=== PATIENT | male | born 1965 | race Caucasian/White ===

== ENCOUNTER 2020-04-08 10:42 | Emergency (ER) | payer BC, SELFPAY ==
[2020-04-08 10:49] VITALS: BP 117/80; RESP 18; TEMP 36.6; BMI 25.0
--- NOTE | 2020-04-08 10:57 | ED_ITS ---
HPI - Extremity Problem General: Chief complaint: Extremity Injury, Upper Stated complaint: COW RAN HIM OVER Time Seen by Provider: 04/08/20 10:51 History of Present Illness: HPI Narrative: Patient is a 54-year-old male comes to the ED with left wrist injury and laceration on left hand. Patient says injury occurred just prior to arrival. 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 He is unsure how his left wrist got injured. He has some swelling and pain but range of motion is all normal. He also has a laceration on the palm of left hand. Patient says he rinsed it out and poured hydrogen peroxide on laceration after injury. Patient's last tetanus shot was within a year. Associated symptoms: Deny chest pain, fever(s) or rash Review of Systems Const: Denies: fever(s), chills or fatigue Eyes: Denies: change in vision or eye discomfort ENMT: Denies: throat pain, odynophagia, nasal discharge or nasal congestion Card: Denies: chest pain, palpitations, edema, swelling of feet/ankles, dyspnea on exertion or orthopnea Resp: Denies: dyspnea, productive cough or non-productive cough GI: Denies: abdominal pain, nausea, vomiting, diarrhea, constipation or hemato chezia : Denies: flank pain, difficulty urinating, dysuria or hematuria Musc: Reports: extremity pain (left wrist) and extremity swelling (left wrist); Denies: neck pain or back pain Skin/Breast: Reports: new lesions (laceration on palmar side of hand); Denies: rash Neuro: Denies: headache(s), numbness in extremities or weakness in extremities PFS ED PFSH: Social History Smoking and tobacco status: never smoked Physical Exam Const: COMMON NORMALS: no acute distress, patient oriented x3, healthy appearing and alert GENERAL APPEARANCE: cooperative and comfortable HENMT: COMMON NORMALS: normocephalic HEAD & SCALP: normocephalic MOUTH: Normal oral and palatal mucosa present THROAT: posterior oropharynx normal and uvula midline Neck/C-Spine: COMMON NORMALS: supple GENERAL: Yes normal visual inspection Resp: COMMON NORMALS: normal respiratory effort, No retractions, No use of accessory muscles and clear to auscultation bilaterally AUSCULTATION: clear to auscultation bilaterally Cardio: COMMON NORMALS: regular rate, regular rhythm, S1 normal heart sound present, S2 normal heart sound present, No gallops present (Cardio), No clicks present (Cardio), No murmurs present (Cardio) and Peripheral pulses 2+ throughout RATE: regular rate RHYTHM: regular rhythm HEART SOUNDS: S1 normal heart sound present and S2 normal heart sound present PERIPHERAL PULSES: Peripheral pulses 2+ throughout GI: COMMON NORMALS: Normal to inspection, nondistended, normoactive bowel jeanne nds present, Soft to palpation, non-tender and no masses PALPATION: Yes Soft to palpation : COMMON NORMALS: Yes no CVA tenderness BLADDER/KIDNEY EXAM: Yes no CVA tenderness Back/Pelvis: COMMON NORMALS: no CVA tenderness Extremity: COMMON NORMALS: capillary refill normal LEFT UPPER EXTREMITY: Yes wrist Left wrist: Yes inspection (Mild swelling, no visible deformity.), Yes palpation (Mild tenderness: Palpation around on lateral ulnar and radial side of wrist.), Yes ROM (Full) and Yes neurovascular exam (Intact) and Yes hand & digits Left hand and digits: Yes inspection (1 cm superficial laceration on palm side of left hand.) Neuro: COMMON NORMALS: patient oriented x3, CN's II-XII intact bilaterally, moves all extremities, no focal motor deficits and no sensory deficits noted SENSORIUM/ORIENTATION: Yes alert SENSORY EXAM: Yes extremities (intact) MOTOR EXAM: 5/5 motor strength present throughout Skin: TRAUMA: laceration (1 cm superficial laceration on palmar aspect of left hand.) linear, actively bleeding (scant), superficial, motor nerve function intact and sensation intact; no pulsatile bleeding Procedures Laceration Laceration 1: Site: hand Side (If applicable): left Size (cm): 1 Description: linear and clean Depth: simple, single layer Pre-repair: irrigated extensively (Irrigated with normal saline and cleaned with CHG swab) Skin layer closed with: other (Dermabond) Technique: other (Dermabond) Course Vital Signs: Vital signs: Vital Signs Temperature 97.8 F 04/08/20 10:49 Pulse Rate 68 04/08/20 13:10 Respiratory Rate 18 04/08/20 13:10 Blood Pressure 131/89 04/08/20 13:10 Pulse Oximetry 98 04/08/20 13:10 MDM - Extremity (Nontraumatic) MDM Narrative: Medical decision making narrative: Patient is a 54-year-old male who comes to the ED with left wrist pain and small 1 cm superficial laceration on palm of left hand. X-ray was performed and showed no acute fractures. Laceration was cleaned with normal saline and CHG. Laceration was closed with Dermabond. Patient was given a dose of cephalexin while here in the ED. Patient diagnosed with left wrist sprain and strain. A bandage was then applied on patient's laceration by the nurse and he was also given a left Velcro wrist splint. Patient told to follow-up with PCP in 7 to 10 days for reevaluation. Take ibuprofen for pain and inflammation. Take full course of antibiotic as prescribed. Change bandage and clean wound and re-bandage daily. Patient understood and agreed with plan. Imaging Data^: Xray Ortho: Attestation: I personally reviewed and interpreted this imaging study as follows: Radiologist's impression: [address] [address] XRay Report Signed Patient: Israel Olivera Unit #: [id number] : 1965 Age/Sex: 54 / M ADM Date: 04/08/20 Loc: ER Room/Bed: Attending Dr: Ordering Provider/Ordering MD: Marvin Waller Date of Service: 04/08/20 Procedure(s): XR wrist LT min 3V* 31495 Accession Number(s): [id number] Report Number: [id number] WS: [id number] XR wrist LT min 3V* [id number] REASON FOR EXAM: injury with wrist pain FINDINGS: Soft tissue swelling surrounding the wrist. No fractures of the ulna or radius are seen. The carpal bones appear to be normal. XR/XR wrist LT min 3V* [id number] IMPRESSION: No fractures identified. Dictated By: Danial Cervantes DO Signed By: Dnaial Cervantes DO Signed Date/Time: 04/08/20 1136 DD/ 1135 Discharge Plan Discharge Patient Disposition: Home, Self-Care Clinical Impression: Sprain and strain of wrist, Laceration Condition: Stable Prescriptions: New cephalexin 500 mg capsule 500 mg PO TID 4 Days Qty: 12 RF: 0 No Action No Known Home Medications RF: 0 Discharge Orders: Discharge Order (Routine); Ordered 04/08/20 Ordered By: Marvin Waller Referrals: Bryan Mitchell MD [Primary Care Provider] - Discharge Diet: Regular Discharge Activity: Resume usual activity Patient Instructions: Laceration (ED), Skin Adhesive Care (ED), Wrist Sprain (ED) Activity Restrictions/Additional Instructions: Call your PCP and schedule a follow-up appointment in 7 to 10 days for reevaluation. Keep laceration site bandaged and dry for the next 24 to 48 hours. Then you can remove bandage daily clean around the wound and re-bandage. You can also apply triple antibiotic ointment over laceration to help prevent infection. Take full course of antibiotics as prescribed. Wear wrist splint to help with wrist pain and to allow wrist r to heal and rest for the next 2 days. Apply ice on wrist to help with symptoms and swelling. Take ibuprofen to help with pain. Watch laceration site for any signs of infection such as increased tenderness, redness, warmth or puslike drainage. If you see any of the signs of infection you can return to ED, PCP or urgent care for to be reevaluated. 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
--- NOTE | 2020-04-08 11:10 | XR_ITS ---
WS: [id number] XR wrist LT min 3V* [id number] REASON FOR EXAM: injury with wrist pain FINDINGS: Soft tissue swelling surrounding the wrist. No fractures of the ulna or radius are seen. The carpal bones appear to be normal. XR/XR wrist LT min 3V* [id number] IMPRESSION: No fractures identified.
[2020-04-08] MEDS: cephALEXin 500 mg Capsule PO (12:57)
[2020-04-08 13:10] VITALS: BP 131/89; PULSE 68; RESP 18; O2SAT 98
== END 2020-04-08 13:05 | disposition home or self-care (01) ==
PROVIDERS: Emergency Provider Physician Assistant; PCP Family Medicine
DX: S63.502A Unspecified sprain of left wrist, initial encounter (principal); S66.912A Strain of unspecified muscle, fascia and tendon at wrist and hand level, left hand, initial encounter; W55.22XA Struck by cow, initial encounter; S61.412A Laceration without foreign body of left hand, initial encounter
CPT/HCPCS: 12001; 12345; 29125; 73110; 99281; 99282; 99283